=== PATIENT | male | born 1970 | race Caucasian/White ===

== ENCOUNTER 2016-12-09 14:56 | Emergency (ER) | payer MEDICAID ==
--- NOTE | 2016-12-09 15:30 | EDPHY ---
H & P Time Seen by Provider: 12/09/16 15:10 HPI/ROS: HPI Right shoulder pain, tingling in right hand. 46-year-old male by private vehicle. This patient reports that he has had lower mid cervical pain and upper thoracic pain ongoing for 8-10 years. He reports about 2 months ago he started having the sensation of discomfort deep in his right axilla. He reports that over the last week this pain has been bothering him more he describes it as a deep ache. He noticed a few days ago that he was having some tingling in his right hand radial and median nerve distributions. He denies any history of traumatic injury. ROS: Constitutional: No fever, no chills. No weakness. Respiratory: No cough. No shortness of breath. Cardiac: No chest pain, no palpitations. Genitourinary: No hematuria. No dysuria or increased frequency with urination. Musculoskeletal: No back pain. As above. No myalgias or arthralgias. Skin: No rashes. Neurological: No headache. As above. Past medical history: As above. Social history: Smoker. Here by himself. . Physical Exam: General Appearance: Alert, no distress. This patient is responding to questions appropriately and in full sentences. This patient appears well- hydrated and well-nourished. Eyes: Pupils equal and round no pallor or injection. No lid edema, erythema or injection. Neurological: Motor sensory function is grossly intact. Cranial nerves are normal. Gait is normal. Skin: Warm and dry, no rashes. Musculoskeletal: Neck is supple and nontender. No midline cervical, thoracic tenderness on palpation. No significant paracervical tenderness on palpation. The right shoulder ranges freely in all planes of motion without pain or impingement. The right upper extremity is neurologically intact in all myotomes in dermatomes. The right upper extremity is vascularly intact. No masses on palpation of his right axilla. No pain on palpation of the right axilla. Extremities are symmetrical. All joints range without pain or impingement. Psychiatric: No agitation. No depression. Database: EKG: Imaging: Chest x-ray PA and lateral; the cardiac mediastinal silhouette is unremarkable. No evidence of infiltrate or pneumothorax. No evidence of right apical mass. No acute cardiopulmonary disease process noted. Interpreted by me. Procedures: Emergency department course: After my evaluation of the patient as discussed, I discussed possible etiologies of his complaint including brachial plexus syndrome, apical pleural cavity mass, cervical radiculopathy. We do not have MRI at the urgent care. Plan will be to order a chest x-ray to look for an obvious mass or bony abnormality of his right shoulder. If this is negative he has a follow-up appointment with his primary care physician scheduled in about a week and a half. Plan will be to obtain MRIs of the cervical spine right shoulder brachial plexus anatomy. 3:50 p.m., patient re-evaluated. Resting comfortably at this time. Results of his x-ray were discussed with him. Plan as above was reviewed. Return to Urgent Care/emergency department precautions were discussed with him. All of his questions were answered. He was discharged from the urgent care in good condition. Differential Diagnosis: The differential diagnosis on this patient includes but is not limited to cervical radiculopathy, brachial plexus syndrome, Pancoast tumor, other upper apical pleural cavity mass. Adhesive capsulitis, acute cervical spine traumatic injury unlikely. This represents a partial list of diagnoses considered. These considerations are based on history, physical exam, past history, reassessment and diagnostic testing. Smoking Status: Current every day smoker Allergies/Adverse Reactions: No Known Allergies Allergy (Unverified 12/09/16 15:15) Departure - Departure Disposition: Home, Routine, Self-Care Clinical Impression: Right hand paresthesia, Neck pain, Possible brachial plexus syndrome Condition: Good Instructions: Cervical Radiculopathy (ED) Additional Instructions: Read and follow provided instructions. Follow-up with your primary care physician as scheduled in 1-2 weeks. You want to get an MRI of your cervical spine and through your right brachial plexus and right shoulder. Ibuprofen dosin mg every 6 hours with meals for the next 3 days only. Return to the emergency department for worsening symptoms or other serious concerns. Referrals: Clinton Donahue MD [Primary Care Provider] - As per Instructions
--- NOTE | 2016-12-09 17:22 | DX ---
PA and lateral chest. December 09, 2016. Clinical History: Chest pain Comparison Study: None available. Findings: The lungs are clear. No pleural disease identified. Heart size is normal. Visualized osseous structures appear normal. Impression: Normal chest.
== END 2016-12-09 16:10 | disposition home or self-care (01) ==
LOC: CED 14:56
DX: M25.511 Pain in right shoulder (principal); R20.2 Paresthesia of skin; M54.2 Cervicalgia; M54.6 Pain in thoracic spine
CPT/HCPCS: 71020-PO; G0463-PO

== ENCOUNTER 2017-10-22 17:23 | Emergency (ER) | payer MEDICAID ==
--- NOTE | 2017-10-22 17:25 | EDPHY ---
H & P HPI/ROS: HPI CHIEF COMPLAINT: Right neck and right arm pain HISTORY OF PRESENT ILLNESS: This patient very pleasant 47-year-old male denies any significant medical history does not take any daily medications he presents emergency room right arm and right neck pain paravertebral sharp stabbing in nature that radiates down into his right arm. He denies any focal weakness or numbness or tingling. 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 He states he has been dealing with chronically for over 10 years and some years better than the others however recently over the past 3 weeks he has had worsening symptoms. He denies associated trauma with this. He states he has been very stressed recently as he is going through divorce. He thinks the stress is exacerbating his pain. He denies any significant chest pain or shortness of breath. He does report that the pain is right side of his neck paravertebral radiates down his right shoulder blade into his right arm. Sometimes he feels in his right armpit right anterior chest. Denies left-sided chest pain. Denies shortness of breath. Denies pleuritic pain. Denies productive cough or fever. Denies headache. Denies trouble swallowing. Denies any focal weakness numbness or tingling. Past Medical History: No significant medical history Past Surgical History: No significant surgical history Social History: Denies daily use of alcohol. Smokes tobacco daily. Occasional marijuana. Occasional alcohol use. Family History: Noncontributory. ROS REVIEW OF SYSTEMS: A comprehensive 10 point review of systems is otherwise negative aside from elements mentioned in the history of present illness. Exam Constitutional appears well nontoxic, triage nursing summary reviewed, vital signs reviewed, awake/alert. Eyes normal conjunctivae and sclera, EOMI, PERRLA. HENT normal inspection, atraumatic, moist mucus membranes, no epistaxis, neck supple/ no meningismus, no raccoon eyes. Respiratory clear to auscultation bilaterally, normal breath sounds, no respiratory distress, no wheezing. Cardiovascular rate normal, regular rhythm, no murmur, no edema, distal pulses normal. Gastrointestinal soft, non-tender, no rebound, no guarding, normal bowel sounds, no distension, no pulsatile mass. Genitourinary no CVA tenderness. Musculoskeletal no significant no midline vertebral tenderness, full range of motion, no calf swelling, no tenderness of extremities, no meningismus, good pulses, neurovascularly intact. Skin pink, warm, & dry, no rash, skin atraumatic. Neurologic awake, alert and oriented x 3, AAOx3, moves all 4 extremities equally, motor intact, sensory intact, CN II-XII intact, normal cerebellar, normal vision, normal speech. 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 Full range of motion of the right arm. His right arm is neurovascular intact good distal pulse. Good sensation. Good strength of the right arm. Axillary nerve intact. No midline cervical spine tenderness. No carotid bruit. Worsening shooting pain down the right arm with abduction of the right arm, and against resistance. Normal flexion and extension of the right wrist. Psychiatric normal mood/affect. Heme/Lymph/Immune no lymphadenopathy. Differential Diagnosis: Includes but is not limited to in a particular order, cervical radiculopathy, disc herniation, annular tear, nerve root compression, spinal stenosis Medical Decision Making: Plan for this patient after lengthy discussion about what he would like done we did agree on a chest x-ray an EKG to make sure the right-sided chest discomfort is not anything significant and most likely related to his cervical radiculopathy. He additionally has declined pain medicine muscle relaxants here in the emergency room as he has to drive home. However he would like pain control and muscle relaxants for home. Additionally I highly recommend that he follows up with his primary care doctor at outpatient setting for probably MRI of his cervical spine which he understands I cannot obtain at this time here in this emergency room. He has no focal neuro deficit and I do not feel that he needs an emergent MRI of cervical spine at this time. I do feel that she be done outpatient. He understands this. Plan will be for home pain control muscle relaxants. EKG, x-ray and basic blood work here in the emergency room. If these are normal he can go home to follow up with his primary care doctor most likely diagnosis cervical radiculopathy. Re-evaluation: EKG interpretation by me on record in [employer] system. Impression time of EKG 1754, this is sinus rhythm rate of 55 left anterior fascicular block present. Otherwise I do not appreciate acute ischemia. No ST elevation. No significant ST depression. No significant T-wave abnormalities. 1820: Blood work is reviewed. Negative troponin. Negative D-dimer. Otherwise blood work unremarkable. Most likely this is cervical radiculopathy. Recommend close follow up his primary care doctor. Will give a prescription for Chandler, Flexeril, Decadron. He understands return emergency room if develops worsening symptoms questions or concerns. Patient's chest x-ray reviewed two view. Questionable right upper lobe mass. Will proceed with CT chest without contrast to further evaluate this. The patient is smoker. He does have family history is mom is of lung cancer. CT scan of the chest without contrast shows no acute abnormality of the lung. Specifically no right upper lobe mass. No pneumothorax. The previously visualized opacity on the chest x-ray is not seen or visualized on CT scan of the chest. I have updated the patient. Recommend follow up with primary care doctor about cervical radiculopathy. Source: Patient - Medical/Surgical History Hx Asthma: No Hx Chronic Respiratory Disease: No Hx Diabetes: No Hx Cardiac Disease: No Hx Renal Disease: No Hx Cirrhosis: No Hx Alcoholism: No Hx HIV/AIDS: No Hx Splenectomy or Spleen Trauma: No Other PMH: RECREATIONAL POT USE - Social History Smoking Status: Current every day smoker Constitutional: Initial Vital Signs Temperature (C) 36.8 C 10/22/17 17:37 Heart Rate 82 10/22/17 17:37 Respiratory Rate 18 10/22/17 17:37 Blood Pressure 149/103 H 10/22/17 17:37 O2 Sat (%) 95 10/22/17 17:37 O2 Delivery Mode Room Air Allergies/Adverse Reactions: cocaine Allergy (Verified 10/22/17 17:36) Home Medications: Medication Instructions Recorded Cyclobenzaprine [Flexeril 10 MG 10 mg PO TID PRN #15 tab 10/22/17 (*)] Dexamethasone [Decadron 4 MG (*)] 8 mg PO DAILY #4 tab 10/22/17 Hydrocodone/APAP 5/325 [Chandler 1 - 2 tab PO Q4H PRN #10 tab 10/22/17 5/325] Medical Decision Making - Diagnostics Imaging Results: Imaging Impressions Chest X-Ray 10/22/17 18:16 Impression: 1. No pneumothorax. 2. Possible new pulmonary nodule or rounded pneumonitis in the right lung apex. 3. Recommend CT chest. Findings and recommendations discussed with Emergency Department physician, Dr. Yousif Sexton at 1832 hours on October 22, 2017. Final report concurs with initial preliminary interpretation. - Data Points Laboratory Results: Laboratory Results 10/22/17 17:48 10/22/17 17:48 10/22/17 10/22/17 10/22/17 18:00 17:48 17:48 WBC RBC Hgb Hct MCV MCH MCHC RDW Plt Count MPV Neut % (Auto) Lymph % (Auto) [place] % (Auto) Eos % (Auto) Baso % (Auto) Nucleat RBC Rel Count Absolute Neuts (auto) Absolute Lymphs (auto) Absolute Monos (auto) Absolute Eos (auto) Absolute Basos (auto) Absolute Nucleated RBC Immature Gran % Immature Gran # D-Dimer < 0.27 ug/mLFEU ug/mLFEU REJ (0.00-0.50) Sodium 138 mEq/L mEq/L (134-144) Potassium 4.1 mEq/L mEq/L (3.5-5.2) Chloride 97 mEq/L mEq/L (97-110) Carbon Dioxide 25 mEq/l mEq/l (22-31) Anion Gap 16 mEq/L mEq/L (8-16) BUN 21 mg/dL mg/dL (7-23) Creatinine 0.9 mg/dL mg/dL (0.7-1.3) Estimated GFR > 60 Glucose 103 mg/dL H mg/dL (70-100) Calcium 9.9 mg/dL mg/dL (8.5-10.4) Troponin I < 0.012 ng/mL ng/mL (0.000-0.034) 10/22/17 17:48 WBC 13.47 10^3/uL H 10^3/uL (3.80-9.50) RBC 5.22 10^6/uL 10^6/uL (4.40-6.38) Hgb 15.9 g/dL g/dL (13.7-17.5) Hct 46.5 % % (40.0-51.0) MCV 89.1 fL fL (81.5-99.8) MCH 30.5 pg pg (27.9-34.1) MCHC 34.2 g/dL g/dL (32.4-36.7) RDW 13.1 % % (11.5-15.2) Plt Count 252 10^3/uL 10^3/uL (150-400) MPV 9.0 fL fL (8.7-11.7) Neut % (Auto) 69.2 % % (39.3-74.2) Lymph % (Auto) 23.2 % % (15.0-45.0) [place] % (Auto) 6.5 % % (4.5-13.0) Eos % (Auto) 0.3 % L % (0.6-7.6) Baso % (Auto) 0.4 % % (0.3-1.7) Nucleat RBC Rel Count 0.0 % % (0.0-0.2) Absolute Neuts (auto) 9.33 10^3/uL H 10^3/uL (1.70-6.50) Absolute Lymphs (auto) 3.13 10^3/uL H 10^3/uL (1.00-3.00) Absolute Monos (auto) 0.87 10^3/uL H 10^3/uL (0.30-0.80) Absolute Eos (auto) 0.04 10^3/uL 10^3/uL (0.03-0.40) Absolute Basos (auto) 0.05 10^3/uL 10^3/uL (0.02-0.10) Absolute Nucleated RBC 0.00 10^3/uL 10^3/uL (0-0.01) Immature Gran % 0.4 % % (0.0-1.1) Immature Gran # 0.05 10^3/uL 10^3/uL (0.00-0.10) D-Dimer Sodium Potassium Chloride Carbon Dioxide Anion Gap BUN Creatinine Estimated GFR Glucose Calcium Troponin I Departure - Departure Disposition: Home, Routine, Self-Care Clinical Impression: Cervical radicular pain Condition: Good Instructions: Cervical Radiculopathy (ED), Neck Pain (ED) Additional Instructions: 1. I do recommend that you follow up with your primary care doctor. 2. Return emergency room if you have worsening symptoms questions or concerns. 3. I have given you a limited supply of pain medicine muscle relaxants. Please be aware that these can make you sleepy you cannot drive or operate heavy machinery while taking these medications. Prescriptions: Cyclobenzaprine [Flexeril 10 MG (*)] 10 mg PO TID PRN #15 tab PRN Reason: Spasms Dexamethasone [Decadron 4 MG (*)] 8 mg PO DAILY #4 tab Hydrocodone/APAP 5/325 [Chandler 5/325] 1 - 2 tab PO Q4H PRN #10 tab PRN Reason: Pain, Moderate
[2017-10-22 17:38] VITALS: RESP 18; TEMP 98.2; O2SAT 95
[2017-10-22 17:52] LABS: % IMMATURE GRANULYOCYTES 0.4 % (0.0-1.1); ABSOLUTE IMMATURE GRANULOCYTES 0.05 10^3/uL (0.00-0.10); ADD DIFF? NO; ADD MORPH? NO; ADD SCAN? NO; ATYPICAL LYMPHOCYTE FLAG 0 (0-99); FRAGMENT RBC FLAG 0 (0-99); HEMATOCRIT 46.5 % (40.0-51.0); HEMOGLOBIN 15.9 g/dL (13.7-17.5); LEFT SHIFT FLG 0 (0-99); LIPEMIA HEMOLYSIS FLAG 90 (0-99); MEAN CELL HEMOGLOBIN 30.5 pg (27.9-34.1); MEAN CELL HEMOGLOBIN CONCENTR. 34.2 g/dL (32.4-36.7); MEAN CELL VOLUME 89.1 fL (81.5-99.8); PLATELET CLUMPS FLAG 0 (0-99); PLATELET COUNT 252 10^3/uL (150-400); RED BLOOD CELL COUNT 5.22 10^6/uL (4.40-6.38); RED CELL DISTRIBUTION WIDTH 13.1 % (11.5-15.2)
--- NOTE | 2017-10-22 17:56 | CPEKG ---
Heart Rate: 55 RR Interval: 1091 P-R Interval: 188 QRSD Interval: 80 QT Interval: 424 QTC Interval: 406 P Philip: 67 QRS Philip: -59 T Wave Philip: 20 EKG Severity - ABNORMAL ECG - EKG Impression: SINUS RHYTHM EKG Impression: LAD, CONSIDER LEFT ANTERIOR FASCICULAR BLOCK Electronically Signed By: Willy García 26-Oct-2017 06:18:56
[2017-10-22 18:09] LABS: ANION GAP 16 mEq/L (8-16); CALCIUM 9.9 mg/dL (8.5-10.4); CARBON DIOXIDE 25 mEq/l (22-31); CHLORIDE 97 mEq/L (97-110); CREATININE 0.9 mg/dL (0.7-1.3); GLOMERULAR FILTRATION RATE > 60; GLUCOSE 103 mg/dL (70-100); POTASSIUM 4.1 mEq/L (3.5-5.2); SODIUM 138 mEq/L (134-144)
[2017-10-22 18:15] LABS: TROPONIN I < 0.012 ng/mL (0.000-0.034)
[2017-10-22 19:04] VITALS: BP 138/89; PULSE 87
== END 2017-10-22 19:10 | disposition home or self-care (01) ==
LOC: CED 17:23
DX: M54.12 Radiculopathy, cervical region (principal); F17.200 Nicotine dependence, unspecified, uncomplicated
CPT/HCPCS: 71020-PO; 71250-PO; 80048-PO; 84484-PO; 85025-PO; 85378-PO

== ENCOUNTER → 2017-11-21 | Outpatient (CLI) | payer MEDICAID | LOC: FIMAGING 10:55 | PROVIDERS: ATTEND Family Medicine | DX: M50.223 Other cervical disc displacement at C6-C7 level (principal); M50.321 Other cervical disc degeneration at C4-C5 level; Q76.49 Other congenital malformations of spine, not associated with scoliosis ==